=== PATIENT | female | born 1990 | race Caucasian/White ===

== ENCOUNTER 2024-03-30 17:04 | Emergency (ER) | payer OTHER, SELFPAY ==
--- NOTE | 2024-03-30 17:11 | ED.FEMALEGU ---
HPI - Female Genitourinary General Chief complaint: Urogenital-Female Stated complaint: UTI symptoms Time Seen by Provider: 03/30/24 17:25 Source: patient and RN notes reviewed Mode of arrival: ambulatory Limitations: no limitations History of Present Illness HPI Narrative: 33-year-old female presents with concern for urinary tract infection. She reports several week history of urine retention, then over the last several days she has had frequency, urgency, dysuria. Reports general malaise. Denies nausea, vomiting. Reports suprapubic discomfort. MD elicited complaint: UTI Related Data Home Medications Medication Instructions Recorded Confirmed progesterone 65 mcg/24 hr See Rx Instructions .Route .COMPLEX 03/30/24 03/30/24 intrauterine device Allergies Allergy/AdvReac Type Severity Reaction Status Date / Time No Known Allergies Allergy Verified 03/30/24 17:25 Review of Systems Review of Systems: CONSTITUTIONAL: Reports malaise. Denies chills, sweats, or fever. CARDIOVASCULAR: Denies chest pain, palpitations, or edema. RESPIRATORY: Denies cough or dyspnea. GASTROINTESTINAL: Denies abdominal pain, nausea, vomiting, diarrhea GENITOURINARY: Reports dysuria, frequency, urgency, suprapubic pressure. Denies flank pain or hematuria. SKIN: Denies rash or itching. MUSCULOSKELETAL: Denies back pain. Reports myalgia. All systems reviewed & are unremarkable except as noted in HPI and below PMFSH Social History Social History Smoking status: Never smoker Comments At time of signature, agree with nursing past medical, surgical, social and family history. There is no relevant family history pertinent to the presenting complaint Exam Narrative: GENERAL: Well-appearing, well-nourished, and in no acute distress. HEAD: Normocephalic. EYES: PERRLA, conjunctivae clear. NECK: Supple. No lymphadenopathy CHEST: Clear to auscultation. No respiratory distress. HEART: Regular rate and rhythm. ABDOMEN: Soft, nontender upon palpation, nondistended, normal active bowel sounds, no palpable or pulsatile masses, no guarding. No CVA tenderness SKIN: Warm, dry, no rash. NEURO: Alert and oriented x3. PSYCH: Normal mood and affect Course Course Emergency Course: Patient is aware of diagnosis, understands and agrees to treatment plan. Anticipatory guidance given. Patient agrees to follow-up as directed and is aware of reasons to seek care at the emergency department. Portions of this record may have been created with voice recognition software Level of Care: Express Care Visit Vital Signs Vital signs: Reviewed. MDM - Female Genitourinary MDM Narrative Medical decision making narrative: Exam findings and UA show no acute concerns or changes; patient is non-toxic appearing and is in no distress. Patient is appropriate for outpatient treatment and follow-up. Differential Diagnosis Differential diagnosis: Likely urinary tract infection and cystitis Critical Care Time Critical Care Time Critical Care Time: No Discharge Plan Discharge Clinical Impression: Urinary tract infection Patient Disposition: Home, Self-Care Condition: Stable Instructions: Antibiotic Form, Urinary Tract Infection in Women (ED) Additional Instructions: We will send a urine culture to the lab; if the culture identifies an organism that the prescribed antibiotic will not treat, you will receive a phone call from an urgent care staff member and an appropriate antibiotic will be prescribed. -Your symptoms should begin to improve within a day of starting antibiotics. But you should finish all the antibiotic pills you get. Otherwise your infection might come back. -Also recommend: increase water intake. Tylenol/ibuprofen as needed for pain or fever -Follow-up with your primary care provider for urine recheck or seek ER visit if condition worsens with high fever, nausea, vomiting and severe back pain. Prescriptions: New am
[2024-03-30 17:14] VITALS: BP 148/105; PULSE 70; RESP 16; TEMP 36.6; O2SAT 98
== END 2024-03-30 17:50 | disposition home or self-care (01) ==
PROVIDERS: Emergency Provider Nurse Practitioner; Referring Provider Emergency Medicine
DX: N39.0 Urinary tract infection, site not specified (principal)
CPT/HCPCS: 81003; 87086; 99213; G0463

== ENCOUNTER 2025-05-23 08:03 | Emergency (ER) | payer BC, SELFPAY ==
[2025-05-23] VITALS (7 sets, daily range): BP systolic 113–138; BP diastolic 69–96; PULSE 68–92; RESP 16–18; TEMP 36.4–36.6; O2SAT 96–99
--- NOTE | ~2025-05-23 | CT_ITS ---
EXAMINATION: CT abdomen pelvis w con DATE: 05/23/2025 09:07 INDICATION: Abdominal pain and blood in stool TECHNIQUE: Computed tomography (CT) of the abdomen and pelvis was performed with 100 mL Omnipaque-350 intravenous contrast. Automated exposure control and iterative reconstruction technique were employe d. The dose-length product was 1207.23 mGy-cm. COMPARISON: None FINDINGS: Lung bases are clear. Heart size normal. No pericardial or pleural effusion. Focal hepatic steatosis along the ligamentum teres. Gallbladder, spleen, pancreas, bilateral adrenal glands and kidneys are n ormal. Small fat-containing umbilical hernia. Bowels including the appendix are normal. Bladder is no rmal. T-shaped IUD in expected position within the retroverted uterus. Bilateral adnexa are unremarka ble. No free intraperitoneal gas or fluid. No pathologically enlarged abdominal or pelvic lymphadenop athy. Mild lumbar and lower thoracic spondylosis. IMPRESSION: 1. No acute intra-abdominal/pelvic process. 2. IUD in expected position. Reviewed, dictated and finalized at location A.
--- OUTSIDE RECORDS SUMMARY | 2025-05-23 08:06 | XMS_ITS | Clinical Summary ---
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 Gender Identity Not on file Sexual Orientation Not on file Plan of Treatment Health Maintenance Due Date Last Done Comments Hepatitis C Virus (HCV) Screening 1989 Hepatitis B Immunization (1 of 3 - 19+ 3-dose series) 2008 Pap Smear 2010 Cervical Cancer Screening (CCS) 2019 HPV/Cotest 2019 Influenza Immunization (#1) 2024 08/03/2015 SARS-COV-2 Immunization ( season) 2024 11/01/2021, 04/09/2021 Respiratory Syncytial Virus (RSV) Immunization (Adult) (1 - 1-dose 75+ series) 2064 DTaP/Tdap/Td Immunization Discontinued 08/03/2015 TdaP Immunization Completed 08/03/2015 Meningococcal Immunization (ACWY) Aged Out No longer eligible based on patient's age to complete this topic Pneumococcal Immunization Combined Aged Out No longer eligible based on patient's age to complete this topic Rotavirus Immunization Aged Out No lo nger eligible based on patient's age to complete this topic
--- OUTSIDE RECORDS SUMMARY | 2025-05-23 08:06 | XMS_ITS | Clinical Summary ---
Author Organization [facility] Address [address] [place] [address] Care Team Providers Care Manager Payment Name Role Phone Riley Escobar MD Primary Care Provider [phone] Allergies Active Allergy Reactions Criticality Noted Date Comments Metals Rash Low 01/05/2020 Medications predniSONE 10 mg tabletIndicatio ns:Muscle strain of right scapular region, initial encounter 4 tablets x 4 days; 3 tab x 3 days; 2 tab x 2 days; 1 tab x 1 day 30 tablet 12/11/2020 Active methocarbamol 750 MG TabIndications: Muscle strain of right scapular region, initial encounter Take 1-2 tablets (750-1,500 mg total) by mouth 3 (three) times daily. 45 tablet 1 12/11/2020 Active HYDROcodone-jenna taminophen 5-325 MG tabletIndicatio ns:Acute Pain < 7 Day Supply Take 1-2 tablets by mouth every 6 (six) hours as needed for Pain. Indications: Acute Pain < 7 Day Supply 20 tablet 12/11/2020 Active Active Problems Problem Noted Date Diagnosed Date Hypothyroidism 11/20/2017 BMI 37.0-37.9, adult 11/20/2017 Acute bronchitis 11/20/2017 Resolved Problems Problem Noted Date Diagnosed Date Resolved Date Wears glasses 11/20/2017 07/28/2020 Wears contact lenses 11/20/2017 020 Encounter for preventive health examination 05/28/2013 07/28/2020 Family History Medical History Relation Comments Cancer Mother Hypertension Mother Diabetes Sister Relation Status Comments Father Mother Alive Sister Alive Social History Tobacco Use Types Packs/Day Years Used Date Smoking Tobacco: Every Day Cigarettes 0.5 6.5 Started: 11/17/2018 Smokeless Tobacco: Never Tobacco Cessation:Ready to Q uit: Yes; Counseling Given: Yes Alcohol Use Standard Drinks/Week Comments Yes 3.3 (1 standard drink = 0.6 oz p ure alcohol) mtann drinks AUDIT-C Answer Date Recorded Q1: How often do you have a drink containing alc ohol? 2-4 times a month 06/15/2020 Q2: How many drinks containi ng alcohol do you have on a typical day when you are drinking? 1 or 2 06/15/2020 Q3: How often do you have si x or more drinks on one occasion? Monthly 06/15/2020 PHQ-2 Answer Date Recorded PHQ-2 Score - If the patient scores above 3, please move on to questions 3-9 0 12/11/2020 Comments No Sex and Gender Information Value Date Recorded Sex Assigned at Not on file Legal Sex Female 7:09 PM CDT Gender Identity Not on file Sexual Orientation Not on file Last Filed Vital Signs Vital Sign Reading Time Taken Comments Blood Pressure 128/72 12/11/2020 8:44 AM SOIL CONSERVATION AIDE Pulse 97 12/11/2020 8:44 AM SOIL CONSERVATION AIDE Temperature 36.5 C (97.7 F) 12/11/2020 8:44 AM SOIL CONSERVATION AIDE Respiratory Rate 20 12/11/2020 8:44 AM SOIL CONSERVATION AIDE Oxygen Saturation 99% 12/11/2020 8:44 AM SOIL CONSERVATION AIDE Inhaled Oxygen Concentration - - Weight 110.7 kg (244 lb) 12/11/2020 8:44 AM SOIL CONSERVATION AIDE Height 170.2 cm (5' 7) 12/11/2020 8:44 AM SOIL CONSERVATION AIDE Body Mass Index 38.22 12/11/2020 8:44 AM SOIL CONSERVATION AIDE Plan of Treatment Health Maintenance Due Date Last Done Comments Cervical Cancer Screening Pa p Smear (Age 30 to 64) Every 3 Years 1989 Annual Physical 1992 Hepatitis C 2007 DTaP, Tdap and Td Vaccines ( 1 - Tdap) 2008 Hepatitis B Vaccines (1 of 3 - 19+ 3-dose series) 2008 Pneumococcal Vaccine: Pediat rics (0 to 5 Years) and At-Risk Patients (6 to 49 Years) (1 of 2 - PCV) 2008 Cervical Cancer Screening Pa p with HPV Testing (Age 30 to 64) Every 5 Years 2019 Cervical Cancer Screening with HPV 2019 COVID-19 Vaccine (2023-2 5 season) 2024 PHQ-2 (Physician [place]) 11/17/2024 HPV Vaccines Aged Out No longer eligi ble based on patient's age to complete this topic Meningococcal B Vaccine Aged Out No l onger eligible based on patient's age to complete this topic Meningococcal Vaccine Aged Out No otto adrian eligible based on patient's age to complete this topic RSV Immunizations Under 20 Months Aged Out No longer eligible based on patient's age to complete this topic Insurance Care Teams Manager Payment Relationship Specialty [place] [address] [facility] [address] [place] [id number] PCP - General INTERNAL MEDICINE 02/10/25
--- NOTE | 2025-05-23 08:29 | ED_ITS ---
HPI - General Adult General Chief complaint: Abdominal Pain Stated complaint: abd pain, blood in stool Time Seen by Provider: 05/23/25 08:07 History of Present Illness HPI narrative: 34-year-old female presenting to the emergency department for evaluation for lower abdominal pain this been ongoing since Friday. Patient has associated nausea without vomiting and diarrhea stool. Patient states it did began noticing some blood in her stool yesterday. Patient states very light and patient reports she does have history of hemorrhoids. Denies any medications. Patient does have a previous surgical history tubal ligation. Related Data Home Medications ?Medication ?Instructions ?Recorded ?Confirmed ?Last Taken ?Type progesterone 65 mcg/24 hr See Rx Instructions .Route .COMPLEX 03/30/24 05/23/25 Unknown History intrauterine device Allergies Allergy/AdvReac Type Severity Reaction Status Date / Time No Known Allergies Allergy Verified 05/23/25 08:18 Review of Systems 2 Review of Systems: All systems reviewed & are unremarkable except as noted in HPI and below PMFSH Social History Social History Smoking status: Never smoker Exam 2 Narrative: APPEARANCE: Well appearing, no pain, no distress, well-nourished. HEAD: normocephalic, atraumatic. EYES: PERRLA/EOMI, conjunctivae clear. NOSE: Normal no drainage EARS:TMS clear with good light reflex. THROAT: Pharynx clear, no exudate. NECK: Supple. No adenopathy, no masses. RESPIRATORY: Airway patent, respirations nonlabored. Clear to auscultation bilaterally, no rales, rhonchi, wheezing. CARDIOVASCULAR: Regular rate and rhythm without murmurs rubs or gallops. ABDOMINAL: Lower abdominal pain with no tenderness to palpation MUSCULOSKELETAL: Moves all extremities. Strength/ROM intact, No edema, No calf tenderness. NEURO: Alert. Cranial nerves II through XII intact. Grossly intact SKIN: Warm, dry. Normal Color Course Vital Signs Vital signs: Vital Signs Temperature 97.8 F 05/23/25 08:15 Pulse Rate 89 05/23/25 08:15 Respiratory Rate 18 05/23/25 08:15 Blood Pressure 134/94 H 05/23/25 08:15 Pulse Oximetry 97 05/23/25 08:15 Oxygen Delivery Room Air 05/23/25 08:15 Temperature 97.5 F L 05/23/25 11:20 Pulse Rate 68 05/23/25 11:20 Respiratory Rate 18 05/23/25 11:20 Blood Pressure 117/69 05/23/25 11:20 Pulse Oximetry 99 05/23/25 11:20 Oxygen Delivery Room Air 05/23/25 08:15 Medical Decision Making [facility] Narrative Medical decision making narrative: 34-year-old female presents emergency department for evaluation for nausea diarrhea and some blood tinged stool. Patient is currently afebrile with no leukocytosis hemoglobin of 14.5. Patient had no reproducible tenderness to palpation and patient has no significant abnormalities on her CMP. UA did have leukocyte esterase positive and 6-10 white blood cells but patient has no urinary symptoms. CT scan showed no acute abdominal pelvic process. Suspect patient is having a viral diarrhea that is exacerbating a hemorrhoid for her. Patient will be recommended to start a clear liquid diet only be provided Zofran for nausea control. Patient will have a urine culture ordered. All questions concerns were addressed patient was comfortable the plan for discharge and close follow-up. Differential Diagnosis Differential Diagnosis: Colitis, diverticulitis, appendicitis, ovarian cyst, enteritis, colitis Vital Signs Vital Signs: Vital Signs Temperature 97.8 F 05/23/25 08:15 Pulse Rate 89 05/23/25 08:15 Respiratory Rate 18 05/23/25 08:15 Blood Pressure 134/94 H 05/23/25 08:15 Pulse Oximetry 97 05/23/25 08:15 Oxygen Delivery Room Air 05/23/25 08:15 Temperature 97.5 F L 05/23/25 11:20 Pulse Rate 68 05/23/25 11:20 Respiratory Rate 18 05/23/25 11:20 Blood Pressure 117/69 05/23/25 11:20 Pulse Oximetry 99 05/23/25 11:20 Oxygen Delivery Room Air 05/23/25 08:15 Lab Data Lab results reviewed: Yes I reviewed the patient's lab results. 05/23/25 08:27 05/23/25 08:27 Labs: Lab Results 05/23/25 05/23/25 05/23/25 Range/Units 08:22 08:27 08:41 WBC 8.5 (4.5-10.0) K/mm3 RBC 4.94 (4.2-5.4) M/mm3 Hgb 14.5 (12.0-15.0) g/dL Hct 43.1 (37.0-47.0) % MCV 87.2 (80-100) fl MCH 29.4 (26-34) pg MCHC 33.6 (32-36) g/dl RDW 12.8 (11.5-14.5) % Plt Count 209 (150-375) k/mm3 MPV 9.8 (7.4-10.4) fl Immature Gran % (Auto) 0.4 (0-0.5) % Neut % (Auto) 74.8 H (45.5-73.1) % Lymph % (Auto) 17.8 L (18.3-44.2) % [place] % (Auto) 6.7 (2.6-8.5) % Eos % (Auto) 0.1 (0-4.4) % Baso % (Auto) 0.2 (0.2-1.2) % Lymph # (Auto) 1.52 (0.9-3.2) K/mm3 [place] # (Auto) 0.6 (0.1-0.6) K/mm3 Eos # (Auto) 0.0 (0-0.3) K/mm3 Baso # (Auto) 0.0 (0.0-0.1) K/mm3 Abs Immat Gran (auto) 0.03 (0.00-0.031) K/mm3 Absolute Neuts (auto) 6.4 (1.3-6.7) K/mm3 Absolute Nucleated RBC 0.000 (0.0-0.012) K/mm3 Nucleated RBC % 0.0 (0.0-0.2) % PT 13.1 (11.1-14.7) Seconds INR 1.0 APTT 29.6 (22.3-36.8) Seconds Sodium 139 (137-145) mmol/L Potassium 4.1 (3.4-5.0) mmol/L Chloride 108 H (98-107) mmol/L Carbon Dioxide 20 L (22-30) mmol/L Anion Gap 11 (4-12) mmol/L BUN 10 (7-17) mg/dL Creatinine 0.86 (0.7-1.0) mg/dL Estim Creat Clear Calc 105 ml/min Estimated GFR > 60 (59 - ) Glucose 105 (65-110) mg/dL Lactic Acid 0.9 (0.7-2.0) mmol/L Calcium 9.4 (8.4-10.2) mg/dL Total Bilirubin 0.5 (0.2-1.3) mg/dL AST 32 (14-36) U/L ALT 46 H (6-35) U/L Alkaline Phosphatase 53 (38-126) U/L Total Protein 8.4 H (6.3-8.2) g/dL Albumin 4.4 (3.5-5.1) g/dL Urine Color Yellow (Yellow) Urine Appearance Clear (Clear) Urine pH 6.5 (5.0-9.0) Ur Specific [place] 1.007 (1.001-1.035) Urine Protein Negative (Negative) mg/dL Urine Glucose (UA) Negative (Negative) mg/dL Urine Ketones Negative (Negative) mg/dL Ur Blood (Man) Negative (Negative) Urine Nitrate Negative (Negative) Urine Bilirubin Negative (Negative) Urine Urobilinogen 0.2 (<2.0) mg/dL Leukocyte Esterase Rfl 1+ H (Negative) ROSI/UL Urine RBC 0-2 (0-2) /hpf Urine WBC 6-10 H (0-3) /hpf Ur Squamous Epith Cells None seen (Few) /hpf Urine Bacteria None seen /hpf Urine Casts 0-2 POC Urine HCG, Qual Negative (Negative) Blood Type O Negative Antibody Screen Negative Imaging Data Radiologist's impression: Impressions Abdomen/Pelvis CT 05/23/25 09:27 IMPRESSION: 1. No acute intra-abdominal/pelvic process. 2. IUD in expected position. Discharge Plan Discharge Clinical Impression: Nausea, Diarrhea Patient Disposition: Home Condition: Stable Instructions: Antibiotic Form, Clear Liquid Diet (ED), Acute Diarrhea (ED), Abdominal Pain (ED) Additional Instructions: Clear liquid diet for the next 1-3 days. Zofran as needed for nausea control. A urine culture was ordered. You may be called in the next 24-48 hours to start antibiotics for a possible urinary tract infection. Have close follow-up with your primary care physician. Patient Language: Kazakh Prescriptions: New ondansetron 4 mg tablet,disintegrating 4 mg PO Q8H PRN (Reason: nausea and vomiting) Qty: 14 0RF No Action progesterone 65 mcg/24 hr Intrauterine Device See Rx Instructions .ROUTE .COMPLEX Rx Instructions: IUD Follow-up/Referrals: PHYSICIAN,ENGINEERING DRAWINGS CHECKER [Primary Care Provider] -
[2025-05-23 08:33] LABS: Hematocrit 43.1 % (37.0-47.0); Hemoglobin 14.5 g/dL (12.0-15.0); Immature Granulocyte Percent A 0.4 % (0-0.5); Lymphocytes Absolute Auto 1.52 K/mm3 (0.9-3.2); Mean Corpuscular HGB Conc 33.6 g/dl (32-36); Mean Corpuscular Hemoglobin 29.4 pg (26-34); Mean Corpuscular Volume 87.2 fl (80-100); Nucleated Red Blood Cells Absolute Auto 0.000 K/mm3 (0.0-0.012); Nucleated Red Blood Cells Perc 0.0 % (0.0-0.2); Platelet Count Result 209 k/mm3 (150-375); Red Blood Count 4.94 M/mm3 (4.2-5.4); White Blood Count 8.5 K/mm3 (4.5-10.0)
[2025-05-23 08:38] LABS: Add Urine Microscopic? YES; Appearance Urine Clear (Clear); Glucose Urine UA Negative (Negative); Leukocyte Esterase Ur 1+ LEU/UL (Negative); Nitrate Urine Negative (Negative); Non Pathogenic Casts 0-2; Specific Grav Ur 1.007 (1.001-1.035)
[2025-05-23 08:44] LABS: BEDSIDEPREGUCG Negative (Negative)
[2025-05-23] MEDS: LACTATED RINGERS 1,000 ML 999 ML IV CONT (08:44)
[2025-05-23 08:45] LABS: Alanine Aminotransferase 46 U/L (6-35); Albumin Level 4.4 g/dL (3.5-5.1); Alkaline Phosphatase 53 U/L (38-126); Anion Gap 11 mmol/L (4-12); Aspartate Amino Transferase 32 U/L (14-36); Bilirubin,Total 0.5 mg/dL (0.2-1.3); Blood Urea Nitrogen 10 mg/dL (7-17); Calcium 9.4 mg/dL (8.4-10.2); Carbon Dioxide 20 mmol/L (22-30); Chloride 108 mmol/L (98-107); Estimated CRCL calculation 105 ml/min; Estimated Glomerular Filt Rate > 60; Glucose 105 mg/dL (65-110); Potassium 4.1 mmol/L (3.4-5.0); Sodium 139 mmol/L (137-145); Total Protein 8.4 g/dL (6.3-8.2)
--- NOTE | 2025-05-23 08:56 | PC.NURSE ---
Pt taken to CT
[2025-05-23 09:02] LABS: INR 1.0; Partial Thromboplastin Time 29.6 Seconds (22.3-36.8); Prothrombin Time 13.1 Seconds (11.1-14.7)
--- OUTSIDE RECORDS SUMMARY | 2025-05-23 10:07 | XMS_ITS | Clinical Summary ---
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
--- OUTSIDE RECORDS SUMMARY | 2025-05-23 10:07 | XMS_ITS | Clinical Summary ---
Author Organization [facility] Address [address] [place] [address] Care Team Providers Care Marketing Director Name Role Phone Riley Escobar MD Primary Care Provider [phone] Allergies Active Allergy Reactions Criticality Noted Date [...] Comments Blood Pressure 128/72 12/11/2020 8:44 AM LABORATORY COURIER Pulse 97 12/11/2020 8:44 AM LABORATORY COURIER Temperature 36.5 C (97.7 F) 12/11/2020 8:44 AM LABORATORY COURIER Respiratory Rate 20 12/11/2020 8:44 AM LABORATORY COURIER Oxygen Saturation 99% 12/11/2020 8:44 AM LABORATORY COURIER Inhaled Oxygen Concentration - - Weight 110.7 kg (244 lb) 12/11/2020 8:44 AM LABORATORY COURIER Height 170.2 cm (5' 7) 12/11/2020 8:44 AM LABORATORY COURIER Body Mass Index 38.22 12/11/2020 8:44 AM LABORATORY COURIER Plan of Treatment Health Maintenance Due Date [...] Vaccine (2023-2 5 season) 2024 PHQ-2 (Physician [employer]) 11/17/2024 HPV Vaccines Aged Out No longer [...] to complete this topic Insurance Care Teams Marketing Director Relationship Specialty [place] [address] [facility] [address] [place] [id number] PCP - General INTERNAL MEDICINE 02/10/25
[2025-05-23] MEDS: ACETAMINOPHEN/ASPIRIN/CAFFEINE 250-250-65 MG TABLET 1 TABLET PO (11:25)
== END 2025-05-23 11:40 | disposition home or self-care (01) ==
PROVIDERS: Emergency Provider Emergency Medicine
DX: R11.0 Nausea (principal); R19.7 Diarrhea, unspecified
CPT/HCPCS: 36415; 74177; 80053; 81001; 81025; 83605; 85025; 85610; 85730; 86850; 86900; 86901; 87086; 96360; 99284; A9270; J7120; Q9967